=== PATIENT | male | born 1955 | race Caucasian/White ===

== ENCOUNTER → 2019-07-22 | Outpatient (CLI) | payer OTHER ==
--- NOTE | 2019-07-22 14:24 | RAD ---
EXAM DESCRIPTION: Knee x-ray,Right Complete CLINICAL HISTORY: 64 years, Male, PAIN IN RIGHT KNEE COMPARISON: None TECHNIQUE: Three x-ray views of the right knee FINDINGS: No fracture or dislocation. Bones appear normally mineralized with normal trabecular pattern. Narrowed appearance of medial and lateral compartments on frontal view with spurring of the lateral joint line and tibial spines. Lateral view shows normal position of the patella. Mild posterior patellar spurring. No definite suprapatellar knee joint effusion. Normal contour of quadriceps and patellar tendons. Enthesopathy is seen at the anterior tibial eminence. Slight lateral patellar tilt without subluxation on patellar sunrise view. Spurring of the lateral patellar margin. IMPRESSION: Degenerative osteoarthrosis of the right knee. Electronically signed by: Manav Hollins MD 07/22/2019 2:22 PM CDT
--- NOTE | 2019-07-22 15:50 | US ---
EXAM DESCRIPTION: Testicular: Ultrasound. CLINICAL HISTORY: 64 years Male RIGHT TESTICULAR PAIN COMPARISON: None. TECHNIQUE: Transcutaneous scanning ; keys-scale and Doppler modes. FINDINGS: Dimensions of the right testicle are 3.1 x 2.4 x 3.9 cm, with normal echogenicity and normal color Doppler flow. Epididymal head measures 10.8 x 10.3 x 8.9 mm, with 8.6 and 4.5 mm cyst in the body.. Otherwise normal echogenicity and normal color Doppler flow. No scrotal wall thickening. Mild to moderate Hydrocele. Dimensions of the left testicle are 3.7 x 2.8 x 2.5 cm, with normal echogenicity and normal color Doppler flow. Epididymal head measures 7.4 x 7.0 x 6.4 mm, with normal echogenicity and normal color Doppler flow. No scrotal wall thickening. Mild to moderate Hydrocele. IMPRESSION: 1. Normal ultrasound of the bilateral testicles and left epididymides. Cysts in the body of the right epididymis but otherwise unremarkable. 2. No scrotal wall thickening. Mild to moderate hydroceles bilaterally. Electronically signed by: Mariano Kirkpatrick MD 07/22/2019 3:48 PM CDT
== END ==
LOC: LAB.O 10:18
PROVIDERS: ATTEND Nurse Practitioner Family
DX: M17.11 Unilateral primary osteoarthritis, right knee (principal); N50.3 Cyst of epididymis; N43.3 Hydrocele, unspecified

== ENCOUNTER → 2019-09-11 | Outpatient (CLI) | payer OTHER ==
--- NOTE | 2019-09-11 14:28 | US ---
EXAM DESCRIPTION: Abdomen,Complete: Ultrasound. CLINICAL HISTORY: 64 years MaleRIGHT UPPER QUAD ABD TENDERNESS COMPARISON: None Available. TECHNIQUE: Transabdominal scanning: grayscale and Doppler modes. FINDINGS: Gallbladder: Surgically absent. No fluid in the gallbladder fossa. Nontender with transducer pressure. Common bile duct: 5.3 mm normal caliber. Liver: Diffuse heterogeneous echogenicity. Limited visualization of the posterior liver and soft tissues posterior to the liver. Mostly hepatopedal flow in the portal vein with some mixing. Caliber is 9 mm at the jenny hepatis. Normal caliber of the hepatic ducts. Long axis right lobe 15.8 cm. Smooth capsule with no ascites. Pancreas: Normal size and echogenicity. Duct not seen.. Abdominal aorta: Normal caliber from the proximal segment to the distal bifurcation. IVC: visualized; normal caliber. Spleen normal echogenicity; long axis measurement is 10 cm. Right kidney: 11.5 cm long axis. Normal cortical thickness and echogenicity. Volume is 168.9 mL. No echogenic stones or hydronephrosis. Left kidney: 11.2 cm long axis. Mild mucosal 131.4 mL. Normal cortical thickness and echogenicity. No echogenic stones or hydronephrosis. IMPRESSION: 1. Fatty liver with normal size and physiologic vascularity. Smooth capsule with no ascites. Pancreas is negative. 2. Gallbladder surgically absent. No fluid in the hepatorenal fossa and no tenderness. Common bile duct normal caliber. 3. Spleen and bilateral kidneys are negative. Abdominal aorta and IVC are normal caliber. The stomach was not evaluated. Electronically signed by: Mariano Kirkpatrick MD 09/11/2019 2:26 PM CDT
== END ==
LOC: US 13:02
PROVIDERS: ATTEND Registered Nurse General Practice
DX: K76.0 Fatty (change of) liver, not elsewhere classified (principal); Z90.49 Acquired absence of other specified parts of digestive tract

== ENCOUNTER → 2019-09-11 | Outpatient (CLI) | payer OTHER | LOC: LAB.O 07:22 | PROVIDERS: ATTEND Registered Nurse General Practice | DX: R10.811 Right upper quadrant abdominal tenderness (principal) ==

== ENCOUNTER → 2019-12-12 | Outpatient (CLI) | payer OTHER ==
--- NOTE | 2019-12-12 14:11 | RAD ---
EXAM DESCRIPTION: Chest,2 Views CLINICAL HISTORY: Cough COMPARISON: Chest radiograph dated February 18, 2009 TECHNIQUE: Two-view radiograph of the chest FINDINGS: Cardiac silhouette shows normal heart size. Pulmonary vascularity is within normal limits. Lungs show no confluent infiltrates. No pleural effusion. No pneumothorax. Degenerative changes of the thoracic spine. Surgical clip in the included upper abdomen. IMPRESSION: No acute cardiopulmonary process. Electronically signed by: Dhaval Perdomo MD 12/12/2019 2:09 PM CDT
== END ==
LOC: YCFC.O 12:59
PROVIDERS: ATTEND Nurse Practitioner Family
DX: Z03.818 Encounter for observation for suspected exposure to other biological agents ruled out (principal); Z03.89 Encounter for observation for other suspected diseases and conditions ruled out; Z11.59 Encounter for screening for other viral diseases; R05 Cough